=== PATIENT | female | born 1990 | race Caucasian/White ===

== ENCOUNTER 2018-08-08 20:10 | Inpatient (IN) | payer MEDICAID, OTHER ==
[2018-08-08] MEDS ORDERED: CARBOPROST TROMETHAMINE 250 MCG/ML 1 ML AMP IM PRN (20:32)
[2018-08-08] MEDS ORDERED: OXYTOCIN 10 UNIT/ML 1 ML VIAL IM PRN (20:32)
[2018-08-08] MEDS ORDERED: METHYLERGONOVINE 0.2 MG/ML 1 ML AMP IM PRN (20:32)
[2018-08-08] MEDS ORDERED: LIDOCAINE 0.5% (PF) 5 MG/ML (50 ML SDV) SQ PRN (20:32)
[2018-08-08] MEDS ORDERED: TERBUTALINE 1 MG/ML VIAL SQ PRN (20:32)
[2018-08-08 20:45] LABS: Basophils % (A) 0 %; Eosinophils # (A) 0.2 k/uL (0-0.7); Eosinophils % (A) 2 %; HCT 40.3 % (34.0-46.0); HGB 13.3 gm/dL (11.4-16.0); Lymphocytes # (A) 3.3 k/uL (1.0-4.8); Lymphocytes % (A) 27 %; MCH 30.4 pg (25.0-35.0); Mean Platelet Volume 7.4; Monocytes # (A) 0.4 k/uL (0-1.0); Monocytes % (A) 4 %; Neutrophils # (A) 7.8 k/uL (1.3-7.7); Neutrophils % (A) 65 %; Platelet Count 236 k/uL (150-450); RBC 4.37 m/uL (3.80-5.40); RDW 15.3 % (11.5-15.5); WBC 12.1 k/uL (3.8-10.6)
[2018-08-08] MEDS ORDERED: LACTATED RINGERS 1,000 ML IV SCH (20:45)
--- NOTE | 2018-08-08 20:47 | P.HPOB ---
History of Present Illness H&P Date: 08/08/18 Chief Complaint: Strong regular uterine contractions and an urge to push This is a 27-year-old white female 4 para 10-1 EDC 08/03/2018 at 40-5/7 weeks' gestation. Patient presented with strong regular uterine contractions, spontaneous amniorrhexis with clear fluid in the parking lot, and an urge to push. She states she's been having uterine contractions since 6:00 this morning, they had become stronger over the past several hours. She denied vaginal bleeding. Fetus is been active throughout the . Patient denies any active herpetic lesions. Past medical history is significant for HSV in the past. Past surgical history right breast lumpectomy of benign pathology. Current medications vitamins daily, Valtrex 500 mg daily. ALLERGIES none known. Family history significant for hypertension, breast cancer, lung cancer, alcoholism, and factor V Leiden mutation. Social history patient is , she is a laboratory secretary at [employer], she is never been a smoker and denies tobacco or alcohol use. Obstetric history blood type is A+, rubella status immune. VDRL testing, urine culture, hepatitis B surface antigen, HIV testing, gonorrhea and chlamydia cultures, factor V Leiden, and group B strep cultures all negative. One-hour Glucola 113. On exam she is 5 foot 6 inches, 210 pounds, vital signs are stable. Aviles examination is not performed is infant's head is and delivery is imminent. Impression: 40-5/7 weeks intrauterine , unremarkable course, imminent delivery. Plan delivery at this time in the triage area. Review of Systems Constitutional: Reports as per HPI Past Medical History Additional Past Medical History / Comment(s): HSV Medications and Allergies Home Medications Medication Instructions Recorded Confirmed Type valACYclovir [Valtrex] 1 tab PO DAILY 08/08/18 08/08/18 History Allergies Allergy/AdvReac Type Severity Reaction Status Date / Time No Known Allergies Allergy Verified 08/08/18 20:30 Exam Intake and Output 08/08/18 08/08/18 08/08/18 06:59 14:59 22:59 Other: Weight 95.254 kg Exam limited secondary to impending delivery. No obvious anomalies Assessment and Plan Assessment: 40-5/7 weeks intrauterine , imminent delivery. All signs reassuring. Plan: Vaginal delivery. Time with Patient: Less than 30
[2018-08-08] MEDS ORDERED: WITCH HAZEL 1 EACH MED..PAD TOPICAL PRN (20:50)
[2018-08-08] MEDS ORDERED: diphenhydrAMINE 25 MG CAP PO PRN (20:50)
[2018-08-08] MEDS ORDERED: BENZOCAINE/MENTHOL SPRAY 1 GM/SPRAY AEROSOL TOPICAL PRN (20:50)
[2018-08-08] MEDS ORDERED: ACETAMINOPHEN TAB 325 MG TAB PO PRN (20:50)
[2018-08-08] MEDS ORDERED: HYDROCORTISONE 2.5% RECTAL CREAM 30 GM TUBE RECTAL PRN (20:50)
[2018-08-08] MEDS ORDERED: LANOLIN CREAM 5 GM TUBE TOPICAL PRN (20:50)
[2018-08-08] MEDS ORDERED: ZOLPIDEM 5 MG TAB PO PRN (20:50)
[2018-08-08] MEDS ORDERED: diphenhydrAMINE 50 MG CAP PO PRN (20:50)
[2018-08-08] MEDS ORDERED: SIMETHICONE 80 MG CHEWABLE PO PRN (20:50)
[2018-08-08] MEDS ORDERED: diphenhydrAMINE 50 MG/ML 1 ML VIAL IVP PRN ×2 (20:50)
--- NOTE | 2018-08-08 20:50 | P.PROBDLV ---
Vaginal Delivery Note - . Vaginal Delivery Note: This is a 27-year-old white female 4 para 10-1 EDC 08/03/2018 at 40-5/7 weeks' gestation. Patient presented to labor and delivery with strong regular uterine contractions since 0600 hrs. They have been increasingly intense end of decreasing interval over the past 2 hours. She states that spontaneous amniorrhexis with clear fluid occurred in the parking lot. She presented to the triage area with an urge to push. history is otherwise remarkable for blood type A positive, rubella status immune. She does have a history of HSV lesions, is on Valtrex prophylactically daily, and denied any active herpetic lesions. Please see my dictated history and physical for details. Upon meeting the patient I introduced myself, and a vaginal prep was performed. With excellent maternal expulsive efforts the 's head delivered occiput anterior and restituted accordingly. There was a nuchal cord 1 that was reduced. The right or anterior shoulder was delivered from underneath the pubic symphysis at which time the oropharynx, nasopharynx, and external nares were bulb suctioned on the perineal body. Patient rapidly delivered a liveborn female at 2022 hours. Umbilical cord was doubly clamped and ligated, she was handed to waiting nurses for evaluation where scores of 9 and 9 at one and 5 minutes respectively were given. The placenta delivered spontaneously, it was inspected and noted to be intact with trivascular cord. At this time the perineal body was redraped. Inspection of cervix, vagina, perineum, periurethral, and perirectal areas revealed a spontaneous second- degree perineal laceration. This was repaired in the usual fashion with 3-0 Vicryl suture, 1% lidocaine used to infuse the tissues for analgesia. Excellent reapproximation was noted. All sponge needle and enhancement counts were correct. Infant weighed 7 lbs. 15 oz. or 3600 grams. The patient was then admitted to a LDRP and allowed to begin the bonding experience with her infant baby. Estimated blood loss 300 mL's. All sponge needle and instrument counts are correct at the end of the procedure.
[2018-08-08] MEDS ORDERED: OXYTOCIN 20 UNITS/1000 ML NS 1,000 ML IV SCH (21:00)
[2018-08-08] MEDS: IBUPROFEN 600 MG TAB PO PRN (21:28)
[2018-08-09 01:26] VITALS: BMI 33.9
[2018-08-09 06:55] LABS: Basophils % (A) 0 %; Eosinophils # (A) 0.2 k/uL (0-0.7); Eosinophils % (A) 1 %; HCT 33.2 % (34.0-46.0); HGB 11.3 gm/dL (11.4-16.0); Lymphocytes # (A) 2.5 k/uL (1.0-4.8); Lymphocytes % (A) 20 %; MCH 31.2 pg (25.0-35.0); MCV 91.8 fL (80.0-100.0); Mean Platelet Volume 7.4; Monocytes # (A) 0.6 k/uL (0-1.0); Monocytes % (A) 5 %; Neutrophils # (A) 9.2 k/uL (1.3-7.7); Neutrophils % (A) 73 %; Platelet Count 190 k/uL (150-450); RBC 3.62 m/uL (3.80-5.40); RDW 15.2 % (11.5-15.5); WBC 12.6 k/uL (3.8-10.6)
[2018-08-09] MEDS: SENNOSIDES-DOCUSATE SODIUM 1 EACH TAB PO SCH ×2 (07:40→20:12)
[2018-08-09 08:19] VITALS: RESP 14
--- NOTE | 2018-08-09 08:24 | P.DS ---
Providers Date of admission: 08/08/18 20:23 Expected date of discharge: 08/09/18 Attending physician: Kaylah Astorga Primary care physician: Stated None - Discharge Diagnosis(es) (1) Term Current Visit: Yes Status: Acute (2) HSV (herpes simplex virus) anogenital infection Current Visit: Yes Status: Acute Hospital Course: This is a 27-year-old 2 para 1001 at 40-5/7 weeks that presented to labor and delivery in active labor. Patient quickly had a normal spontaneous v aginal delivery of a viable female in the triage area. Viable female infant delivered at 2022 with Apgars of 9 and 9 at one and 5 minutes respectively. Infant weight of 7 lbs. 15 oz.,. Patient did sustain a second- degree perineal laceration which was repaired in the usual fashion with 3-0 Vicryl. Patient's course has been uneventful. On this day #1 she is ambulatory and voiding without difficulty. She is tolerating a regular diet without nausea or vomiting. She feels well and wishes discharge home. Patient Condition at Discharge: Good Plan - Discharge Summary New Discharge Prescriptions: No Action valACYclovir [Valtrex] 1 tab PO DAILY Discharge Medication List valACYclovir [Valtrex] 1 tab PO DAILY 08/08/18 [History] Follow up Appointment(s)/Referral(s): Kaylah Astorga DO [Doctor of Osteopathic Medicine] - 4 Weeks Patient Instructions/Handouts: Vaginal Delivery (GEN), Vaginal Delivery (DC)
[2018-08-09] MEDS ORDERED: valACYclovir HCL 1,000 MG TABLET PO SCH (09:00)
[2018-08-09 16:25] VITALS: BP 116/51; PULSE 87; TEMP 98.6
[2018-08-09] MEDS: IBUPROFEN 600 MG TAB PO PRN (20:11)
== END 2018-08-09 21:00 | disposition home or self-care (01) | DRG 806 ==
LOC: FBPOP 20:10 → 4FBP 20:23
PROVIDERS: ADMIT Obstetrics & Gynecology; ATTEND Obstetrics & Gynecology Obstetrics
PROC: 10E0XZZ Delivery of Products of Conception, External Approach (ICD-10-PCS; principal; 2018-08-08)
PROC: 0KQM0ZZ Repair Perineum Muscle, Open Approach (ICD-10-PCS; 2018-08-08)
DX: O69.81X0 Labor and delivery complicated by cord around neck, without compression, not applicable or unspecified (principal); O98.32 Other infections with a predominantly sexual mode of transmission complicating childbirth; Z37.0 Single live birth; O70.1 Second degree perineal laceration during delivery; A60.9 Anogenital herpesviral infection, unspecified; Z3A.40 40 weeks gestation of pregnancy; Z80.1 Family history of malignant neoplasm of trachea, bronchus and lung; Z80.3 Family history of malignant neoplasm of breast; Z82.49 Family history of ischemic heart disease and other diseases of the circulatory system; Z81.1 Family history of alcohol abuse and dependence
CPT/HCPCS: 85025; 86850; 86900; 86901; 99213

== ENCOUNTER → 2021-03-20 | Outpatient (CLI) | payer MEDICAID ==
--- NOTE | 2021-03-20 12:01 | MM ---
Reason for exam: clinical finding. Baseline mammogram. History: Family history of breast cancer in maternal aunt at age 40. Lumpectomy of the right breast, 2010. Taking hormonal contraceptives for 3 years beginning at age 17. Physical Findings: Nurse did not find any significant physical abnormalities on exam. MG Diagnostic Mammo w CAD JAVY Bilateral CC and MLO view(s) were taken. The breast tissue is heterogeneously dense. This may lower the sensitivity of mammography. No suspicious calcifications are seen. Post operative changes right breast. These results were verbally communicated with the patient and result sheet given to the patient on 03/20/21. ASSESSMENT: Negative, BI-RAD 1 RECOMMENDATION: Routine screening mammogram of both breasts at age 40. Manage patient on a clinical basis.
== END | disposition home or self-care (01) ==
LOC: RADMAMWWP 10:41
PROVIDERS: ATTEND Family Medicine
DX: N64.52 Nipple discharge (principal)
CPT/HCPCS: 77066